=== PATIENT | male | born 1965 | race Caucasian/White ===

== ENCOUNTER → 2016-04-18 | Outpatient (CLI) | payer OTHER ==
[~2016-04-18] MED LIST: ASPIR 8181 M1 PO; AXIRON90 ML TD; COLAZAL750 MG PO; MULTI-VITAMIN1 EAC4 PO; VITAMIN D32000 UNI1 PO
== END | disposition home or self-care (01) ==
LOC: AMB 13:30
PROC: 0HBJXZZ Excision of Left Upper Leg Skin, External Approach (ICD-10-PCS; principal; 2016-04-18)
DX: L92.9 Granulomatous disorder of the skin and subcutaneous tissue, unspecified (principal); R22.42 Localized swelling, mass and lump, left lower limb
CPT/HCPCS: 88305